=== PATIENT | male | born 2005 | race Caucasian/White ===

== ENCOUNTER 2025-04-09 05:34 | Emergency (ER) | payer BC, SELFPAY ==
[2025-04-09 05:35] VITALS: BP 142/113; PULSE 66; RESP 16; TEMP 36.2; O2SAT 100; BMI 19.6
--- NOTE | 2025-04-09 05:43 | EDS_ITS ---
HPI History of Present Illness Chief Complaint: ETOH Intox Detail of Chief Complaint: Alcohol intoxication and vomiting Informant: patient and spouse/S.O. Narrative Narrative: Patient presents to the emergency department with complaint of feeling like he is dehydrated and his body shutting down. Patient states he was drinking heavily last night. He was drinking twisted teas. He drinks most every day. Patient denies any abdominal pain. He has been vomiting throughout the night and has not slept. Had similar presentation to an emergency department at another facility about a year ago. Patient denies illicit drug use. PFSH PFSH Medical History no medical history Home Medications ?Medication ?Instructions ?Recorded ?Last Taken ?Type ondansetron 4 mg disintegrating 4 mg PO Q8H PRN PRN Na usea #10 tabs 04/09/25 Unknown Rx tablet Allergy/AdvReac Type Severity Reaction Status Date / Time No Known Allergies Allergy Verified 04/09/25 05:38 Surgical History no surgical history Social History Smoking Status: Current every day smoker tobacco type: cigarettes and e- cigarettes ROS ROS ED ROS Narrative Alcohol intoxication Review of Systems ROS Unobtainable: other Constitutional Constitutional ED: Reports lethargy; Denies chills, fever(s), sweats or weight loss Eyes Eyes: Denies blurry vision, change in vision or diplopia ENT ENT ED: Denies rhinorrhea or sore throat Cardiovascular Cardiovascular: Denies chest pain, orthopnea or racing heartbeat Respiratory/Chest Respiratory/Chest: Denies cough, dyspnea, dyspnea on exertion, orthopnea or sputum Gastrointestinal Gastrointestinal: Reports nausea and vomiting; Denies abdominal pain or diarrhea Genitourinary Genitourinary ED: Denies dysuria, hematuria or urinary frequency Musculoskeletal Musculoskeletal: Denies arthralgias, back pain, myalgias or neck pain Integumentary Denies abscess, Abrasions or rash Neurologic Neurologic: Denies headache(s) or weakness Psychiatric Psychiatric: Denies anxiety, depression or suicidal thoughts Endocrine Endocrinology: Denies polydipsia, polyphagia or polyuria Hematologic/Lymphatic Hematologic/Lymphatic: Denies easy bleeding, easy bruising or lymphadenopathy Allergic/Immunologic Allergic/Immunologic ED: Denies mouth swelling, tongue swelling or urticaria EXAM Physical Exam Const Vital Signs: 04/09/25 05:35 Temperature 97.2 F L Temperature Source Oral Pulse Rate 66 Respiratory Rate 16 Blood Pressure 142/113 H Blood Pressure Mean 122 Pulse Ox 100 Positive well nourished and well developed General Appearance ED: well developed and NAD HEENT Reports TM's clear and moist mucous membranes normocephalic and atraumatic; Negative for trauma or tenderness Tympanic Membrane ED: Yes TM's clear Eyes PERRL and EOMs intact bilaterally General Eye ED: Negative for pale conjunctiva or scleral icterus Neck no lymphadenopathy, supple and no JVD General: Negative for tenderness Chest Wall inspection of chest normal and palpation of chest normal Chest: Negative for tenderness Resp normal respiratory effort and clear to auscultation bilaterally Effort and Inspection: Negative for respiratory distress or pain with movement Auscultation: Negative for rhonchi, wheezes or diminished lung sounds Cardio regular rate, regular rhythm, S1 normal heart sound, S2 normal heart sound and no murmurs Peripheral Pulses: pulses 2+ throughout GI normal to inspection, nondistended, normoactive bowel sounds, soft to palpation, non-tender, non-distended and no masses Back/Spine no CVA tenderness and no thoracic nor lumbar tenderness Extremity normal to inspection General Extremety ED: Negative for edema General Extremity: Negative for edema Neuro oriented x3, CN's II-XII intact bilaterally, no sensory deficits noted and gait normal Sensorium / Orientation: awake, alert, oriented to person, oriented to place and oriented to time Motor Exam: strength 5/5 throughout and strength abnormal Psych mental status grossly normal Skin no rashes or lesions noted and no wounds MDM MDM MDM Narrative Medical decision making narrative: Patient presents to the emergency department after drinking heavily last night. He has been vomiting and does not feel well. IV line was established. He was given Zofran and a liter of normal saline. He was then given a second liter of saline and 5 mg of Reglan IV. CBC with differential obtained showed an elevated white count of 16.3 which I suspect is reactive from retching and vomiting. Hemoglobin was 14 and platelet count was 264. Chemistries unremarkable. LFTs teas were normal. Lipase normal at 18. Alcohol was less than 10. After treatment he felt markedly improved and was able to tolerate p.o. challenge. His abdominal exam is benign and I do not feel he needs any imaging. Patient advised to discontinue drinking alcohol slowly over time and advised to seek help if need be. Lab Data Attestation: I reviewed the patient's lab results. Labs: Laboratory Results - last 24 hr 04/09/25 05:38 WBC 16.3 H RBC 4.84 Hgb 14.0 Hct 40.6 MCV 83.9 MCH 28.9 MCHC 34.5 RDW Std Deviation 37.4 RDW Coeff of [place] 12.4 Plt Count 264 MPV 11.0 Immature Gran % (Auto) 0.400 Neut % (Auto) 87.6 H Lymph % (Auto) 6.2 L [place] % (Auto) 5.5 Eos % (Auto) 0.1 Baso % (Auto) 0.2 Absolute Neuts (auto) 14.3 H Absolute Lymphs (auto) 1.01 Nucleated RBC % 0 Sodium 142 Potassium 3.5 Chloride 99 Carbon Dioxide 18.1 L Anion Gap 24 H BUN 9 Creatinine 0.94 Estim Creat Clear Calc 112.18 Est GFR (MDRD) Non-Af 118 BUN/Creatinine Ratio 9.9 L Glucose 139 H Calcium 10.6 Total Bilirubin 0.58 AST 30 ALT 17 Alkaline Phosphatase 112 Total Protein 8.4 Albumin 5.3 H Globulin 3.1 Albumin/Globulin Ratio 1.7 Lipase 16 Ethyl Alcohol < 10.1 Discharge Plan Triage Chief Complaint: ETOH Intox ED Provider: Leonard Tobar Dx/Rx/DC Orders Clinical Impression: Vomiting, Alcohol withdrawal Instructions: Alcohol Withdrawal: What to Expect, Addiction Recovery Relapse, ED Vomiting (Adult), ED Alcohol Abuse Prescriptions: New ondansetron 4 mg tablet,disintegrating 4 mg PO Q8H PRN PRN (Reason: Nausea) Qty: 10 0RF Primary Care Provider: Care Physician,No Primary Referrals: James Chapman MD [Med Staff - Active Staff, Family Practice] - 5-7 Days NOT,DEFINED [Non-Staff, None] Print Language: [place]
[2025-04-09] MEDS: 0.9% Normal Saline (1000mL) 1,000 ML 1000 ML IV (05:48)
[2025-04-09 05:49] LABS: Hematocrit 40.6 % (40-54); Hemoglobin 14.0 g/dL (13.0-16.5); Immature Granulocytes Count 0.070 X10^3/uL (0.0-0.0); Mean Corp Hgb Conc 34.5 g/dL (32-36); Mean Corpuscular Volume 83.9 fL (80-94); Mean Platelet Vol. 11.0 fl (6.2-12.0); NRBC Flagged by Analyzer 0 % (0-5); Platelet Count 264 K/mm3 (150-450); RBC Distribution Width CV 12.4 % (11.6-14.6); RBC Distribution Width SD 37.4 fl (35.1-43.9); Red Blood Count 4.84 M/mm3 (4.6-6.2); White Blood Count 16.3 K/mm3 (4.4-11.0)
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
[2025-04-09 06:05] LABS: Alcohol, Blood (Medical)-Serum < 10.1 mg/dL (<=10.0)
[2025-04-09 06:06] LABS: AST(SGOT) 30 U/L (<=37); Alanine Aminotransfer ALT/SGPT 17 U/L (<=46); Albumin, Serum 5.3 g/dL (3.5-5.0); Alkaline Phosphatase 112 U/L (40-129); Anion Gap 24 (5-15); BUN 9 mg/dL (4-19); BUN/Creat Ratio 9.9 RATIO (10-20); Calcium,Total 10.6 mg/dL (7.6-11.0); Carbon Dioxide 18.1 mmol/L (21.0-32.0); Chloride 99 mmol/L (98-108); Estimated Creatinine Clearance 112.18 ml/min (50-250); Globulin 3.1 g/dL (2.2-4.2); Glucose 139 mg/dL (70-99); Lipase 16 U/L (13-75); Potassium 3.5 mmol/L (3.3-5.1)
[2025-04-09] MEDS: 0.9% Normal Saline (1000mL) 1,000 ML 999 ML IV (06:49)
[2025-04-09 07:45] VITALS: BP 139/59; PULSE 53; RESP 18; TEMP 36.5; O2SAT 100
== END 2025-04-09 07:48 | disposition home or self-care (01) ==
LOC: ED 05:55
PROVIDERS: Emergency Provider Emergency Medicine; Visit Provider Emergency Medicine
DX: F10.239 Alcohol dependence with withdrawal, unspecified (principal); Y90.0 Blood alcohol level of less than 20 mg/100 ml; F17.210 Nicotine dependence, cigarettes, uncomplicated; F17.290 Nicotine dependence, other tobacco product, uncomplicated
CPT/HCPCS: 80053; 82077; 83690; 85025; 96361; 96374; 96375; 99283; A4216; J2405